=== PATIENT | female | born 1995 | race American Indian/Alaskan Native ===

== ENCOUNTER 2018-11-19 16:05 | Outpatient (CLI) | payer OTHER | END 2018-11-19 19:56 | disposition home or self-care (01) | LOC: OBS/DEL 16:05 | DX: O60.03 Preterm labor without delivery, third trimester (principal); O98.813 Other maternal infectious and parasitic diseases complicating pregnancy, third trimester; B37.89 Other sites of candidiasis; Z34.83 Encounter for supervision of other normal pregnancy, third trimester; O35.8XX0 Maternal care for other (suspected) fetal abnormality and damage, not applicable or unspecified ==

== ENCOUNTER 2018-11-29 17:47 | Outpatient (CLI) | payer OTHER ==
[2018-11-29] MEDS ORDERED: TYLENOL325 MG PO (18:43)
[2018-11-29] MEDS ORDERED: PRENATAL TABLE1 EACH PO (18:43)
[2018-11-29] MEDS ORDERED: ROBITUSSIN COU237 M1 PO (20:28)
[2018-11-29] MEDS ORDERED: ZITHROMAX500 MG PO (20:28)
== END 2018-11-29 21:04 | disposition home or self-care (01) ==
LOC: OBS/DEL 17:47
DX: O26.893 Other specified pregnancy related conditions, third trimester (principal); J31.0 Chronic rhinitis; Z34.83 Encounter for supervision of other normal pregnancy, third trimester

== ENCOUNTER 2018-12-31 14:15 | Inpatient (IN) | payer OTHER ==
[~2018-12-31] VITALS: Ht 162.6 cm; Wt 3.2 kg
[~2018-12-31 14:15] MED LIST: PRENATAL TABLE1 EACH PO; ROBITUSSIN COU237 M1 PO; TYLENOL325 MG PO; ZITHROMAX500 MG PO
[2018-12-31] MEDS ORDERED: VALTREX1000 MG PO (16:40)
== END 2019-01-03 12:48 | disposition home or self-care (01) | DRG 784 ==
LOC: LDR 14:15 → OB/GYN 14:15
PROVIDERS: ADMIT Obstetrics & Gynecology
PROC: 0UL70ZZ Occlusion of Bilateral Fallopian Tubes, Open Approach (ICD-10-PCS; 2018-12-31)
PROC: 4A1HXCZ Monitoring of Products of Conception, Cardiac Rate, External Approach (ICD-10-PCS; 2018-12-31)
PROC: 10D00Z1 Extraction of Products of Conception, Low, Open Approach (ICD-10-PCS; principal; 2018-12-31 16:00)
DX: O82 Encounter for cesarean delivery without indication (principal); O98.52 Other viral diseases complicating childbirth; Z3A.37 37 weeks gestation of pregnancy; Z37.0 Single live birth; Z30.2 Encounter for sterilization